=== PATIENT | male | born 1990 | race Two or more races ===

== ENCOUNTER 2018-06-16 21:14 | Emergency (ER) | payer OTHER ==
[~2018-06-16] VITALS: Ht 363.2 cm; Wt 90.7 kg
--- NOTE | 2018-06-16 21:14 | NUR ---
CALLED PT FOR TRIAGE, NO RESPONSE, PT PHYSICALLY NOT IN WAITING ROOM
[2018-06-16] MEDS ORDERED: CLONIDINE HCL 0.1 MG TABLET ONE (21:54)
[2018-06-16 21:57] VITALS: BP 132/89
--- NOTE | 2018-06-16 21:58 | NUR ---
PT REFUSED IV INSERTION AND IV FLUIDS. PA MADE AWARE
[2018-06-16] MEDS ORDERED: IV NS 0.9% 1,000 ML BAG IV ONE (22:00)
[2018-06-16] MEDS ORDERED: CLONIDINE HCL 0.1 MG TABLET PO ONE (22:00)
== END 2018-06-16 22:28 | disposition home or self-care (01) ==
LOC: ER 21:16
DX: F11.23 Opioid dependence with withdrawal (principal); F41.9 Anxiety disorder, unspecified; F14.10 Cocaine abuse, uncomplicated
CPT/HCPCS: A4606; J7030; Z7610

== ENCOUNTER 2019-08-20 00:33 | Emergency (ER) | payer OTHER ==
[~2019-08-20] VITALS: Ht 175.3 cm; Wt 90.7 kg
[2019-08-20 00:38] VITALS: BP 131/88
--- NOTE | 2019-08-20 00:51 | NUR ---
AT BEDSIDE FOR EVAL
[2019-08-20] MEDS ORDERED: SULFAMETH/TRIMETH 800/160 MG 1 UDTAB TABLET PO ONE (01:00)
[2019-08-20] MEDS ORDERED: MUPIROCIN OINT 2% 22 GM TUBE TP ONE ×2 (01:00→01:30)
[2019-08-20] MEDS ORDERED: MUPIROCIN OINT 2% 22 GM TUBE ONE (01:03)
[2019-08-20] MEDS ORDERED: SULFAMETH/TRIMETH 800/160 MG 1 UDTAB TABLET ONE (01:03)
--- NOTE | 2019-08-20 01:12 | NUR ---
BACTROBAN 30GM CHANGED TO BACTROBAN 22GM
--- NOTE | 2019-08-20 01:13 | NUR ---
Patient discharged to home in stable condition. Written and verbal after care instructions given. Patient verbalizes understanding of instruction. Pt ambulatory with a steady gait
== END 2019-08-20 01:14 | disposition home or self-care (01) ==
LOC: ER 00:37
DX: T14.8XXA Other injury of unspecified body region, initial encounter (principal); L01.09 Other impetigo; F11.10 Opioid abuse, uncomplicated; F41.9 Anxiety disorder, unspecified; F17.200 Nicotine dependence, unspecified, uncomplicated; Z71.6 Tobacco abuse counseling; W57.XXXA Bitten or stung by nonvenomous insect and other nonvenomous arthropods, initial encounter; Y93.89 Activity, other specified; Y92.89 Other specified places as the place of occurrence of the external cause; Y99.8 Other external cause status

== ENCOUNTER 2020-05-05 16:12 | Emergency (ER) | payer OTHER ==
[~2020-05-05] VITALS: Ht 165.1 cm; Wt 95.3 kg
[2020-05-05 16:36] VITALS: BP 160/99
== END 2020-05-05 17:30 | disposition home or self-care (01) ==
LOC: ER 16:15
DX: L02.413 Cutaneous abscess of right upper limb (principal); F19.90 Other psychoactive substance use, unspecified, uncomplicated; F17.210 Nicotine dependence, cigarettes, uncomplicated; R00.0 Tachycardia, unspecified; F41.9 Anxiety disorder, unspecified